=== PATIENT | male | born 1990 | race Native Hawaiian/Other Pacific Islander ===

== ENCOUNTER → 2021-01-29 | Outpatient (CLI) | payer BC ==
--- NOTE | 2021-01-29 15:22 | CT ---
EXAMINATION TYPE: CT angio chest DATE OF EXAM: 01/29/2021 COMPARISON: Radiographs same day HISTORY: 30-year-old male SOB. Hx Covid October 2020. TECHNIQUE: Contiguous axial scanning of the chest performed with IV Contrast, patient injected with 1 00 mL of Isovue 370. Coronal/sagittal MIP reconstructions performed. CT DLP: 453.30 mGycm Automated exposure control for dose reduction was used. FINDINGS: Heart normal size without pericardial effusion. No flattening of the interventricular septum. Trace c ontrast refluxing into the hepatic veins. Mild LAD coronary artery calcifications. Borderline ectatic aortic root at 3.6 cm. Convex arch vessel branching anatomy. No thoracic lymphadenopathy by CT size criteria. There is suboptimal opacification of the pulmonary arterial system with attenuation of 190 Hounsfield units. No large central or lobar branch pulmonary embolus is identified. Many of the segmental and m ore distal arterial branches are nondiagnostic due to the degree of heterogeneity of arterial opacifi cation. Mild dependent atelectasis. No consolidation or pleural effusion. Anterior splenule. Visualized upper abdomen otherwise shows no gross abnormality. Bones: No osseous destructive process. IMPRESSION: 1. SUBOPTIMAL CONTRAST BOLUS. NO LARGE CENTRAL OR LOBAR BRANCH PULMONARY EMBOLUS. HOWEVER, MANY OF TH E SEGMENTAL AND MORE DISTAL ARTERIAL BRANCHES ARE NONDIAGNOSTIC AND EMBOLI IN THESE LOCATIONS CANNOT BE ADEQUATELY EXCLUDED ON THE BASIS OF THIS EXAM. FURTHER CLINICAL CORRELATION RECOMMENDED WITH FOLLO W-UP INDICATED. 2. MILD DEPENDENT ATELECTASIS IN THE LUNGS. NO ACUTE PULMONARY PROCESS.
== END | disposition home or self-care (01) ==
LOC: RADCTMAIN 14:35
PROVIDERS: ATTEND Internal Medicine
DX: J98.11 Atelectasis (principal); Z86.16 Personal history of COVID-19
CPT/HCPCS: 71275; Q9967

== ENCOUNTER → 2021-02-20 | Outpatient (CLI) | payer BC ==
--- NOTE | 2021-02-20 10:53 | ECHOF ---
Referral Reason:R06.00 Dyspnea MEASUREMENTS -------- HEIGHT: 182.9 cm WEIGHT: 120.2 kg BP: 152/88 RVIDd: 3.4 cm (< 3.3) IVSd: 1.3 cm (0.6 - 1.1) LVIDd: 4.9 cm (3.9 - 5.3) LVPWd: 1.2 cm (0.6 - 1.1) IVSs: 1.8 cm LVIDs: 3.0 cm LVPWs: 1.8 cm LA Diam: 3.2 cm (2.7 - 3.8) LAESV Index (A-L): 19.81 ml/m Ao Diam: 3.6 cm (2.0 - 3.7) AV Cusp: 2.5 cm (1.5 - 2.6) MV EXCURSION: 22.560 mm (> 18.000) MV EF SLOPE: 155 mm/s (70 - 150) EPSS: 0.7 cm MV E Elias: 0.75 m/s MV DecT: 188 ms MV A Elias: 0.59 m/s MV E/A Ratio: 1.27 FINDINGS -------- Sinus rhythm. This was a technically adequate study. The left ventricular size is normal. There is mild concentric left ventricular hypertrophy. Overa ll left ventricular systolic function is normal with, an EF between 60 - 65 %. The right ventricle is mildly enlarged. Normal LA size by volume 22+/-6 ml/m2. The right atrium is normal in size. Interatrial and interventricular septum intact. The aortic valve is trileaflet, and appears structurally normal. No aortic stenosis or regurgitation. There is trace mitral regurgitation. Trace tricuspid regurgitation present. Unable to estimate RVSP due to inadequate TR jet spectral do ppler profile. Trace/mild (physiologic) pulmonic regurgitation. The aortic root size is normal. Normal inferior vena cava with normal inspiratory collapse consistent with estimated right atrial pre ssure of 5 mmHg. There is no pericardial effusion. CONCLUSIONS -------- 1. The left ventricular size is normal. 2. There is mild concentric left ventricular hypertrophy. 3. Overall left ventricular systolic function is normal with, an EF between 60 - 65 %. 4. The right ventricle is mildly enlarged. 5. Normal LA size by volume 22+/-6 ml/m2. 6. The aortic valve is trileaflet, and appears structurally normal. No aortic stenosis or regurgitati on. 7. There is trace mitral regurgitation. 8. Trace tricuspid regurgitation present. 9. Trace/mild (physiologic) pulmonic regurgitation. 10. There is no pericardial effusion. AGITATOR OPERATOR: Kelsey Noyola RDCS
== END | disposition home or self-care (01) ==
LOC: RADECHMAIN 08:15
PROVIDERS: ATTEND Internal Medicine
DX: I08.8 Other rheumatic multiple valve diseases (principal)
CPT/HCPCS: 93306